=== PATIENT | male | born 1995 | race Caucasian/White ===

== ENCOUNTER 2016-09-06 13:48 | Outpatient (RCR) | payer OTHER | END 2016-10-25 09:00 | LOC: WSOH 13:48 | DX: S00.03XA Contusion of scalp, initial encounter (principal); S06.0X0A Concussion without loss of consciousness, initial encounter; W22.8XXA Striking against or struck by other objects, initial encounter; Y99.0 Civilian activity done for income or pay ==

== ENCOUNTER 2016-10-29 08:09 | Outpatient (RCR) | payer OTHER | END 2017-01-20 | LOC: WSOH | DX: M79.672 Pain in left foot (principal); X50.1XXA Overexertion from prolonged static or awkward postures, initial encounter; Y99.0 Civilian activity done for income or pay ==